=== PATIENT | male | born 1955 | race Caucasian/White ===

== ENCOUNTER 2016-09-23 07:21 | Emergency (ER) | payer OTHER ==
[~2016-09-23] VITALS: Ht 190.5 cm; Wt 95.0 kg
[~2016-09-23 07:21] MED LIST: CARD8TAB2 PO; LOSA50TA PO; LOVA40TA PO; SAW450CA2 PO
[2016-09-23 07:23] VITALS: BP 149/94; PULSE 88; RESP 16; TEMP 97.7; O2SAT 96
--- NOTE | 2016-09-23 07:31 | PD ---
HPI . left index and middle finger laceration last night Chief Complaint: Laceration/Skin Injury Time Seen by Provider: 07:31 Travel History International Travel<30 days: No Contact w/Intl Traveler<30days: No Traveled to known affect area: No History of Present Illness HPI 61-year-old male with history of hypertension and hyperlipidemia here with left index and middle finger laceration that occurred last night around 6 PM. Patient decided to apply Steri-Strips himself as he did not want to wait in the emergency room. This morning he is here wanting suture repair to his left index and middle finger. He has approximately a 1 cm laceration on the left index finger and 1.5 cm laceration on the left middle finger. They're both at the distal tip of the finger, do not affect the nailbed or nail and are on the palmar surface of the hand. He is right-hand dominant. He is up-to-date on his tetanus vaccination. PFSH Past Medical History High Cholesterol: Yes Hypertension: Yes ?: Not Social History Tobacco Use: No Allergies-Medications (Allergen,Severity, Reaction): Coded Allergies: No Known Allergies (Verified , 09/23/16) Reported Meds & Prescriptions Reported Meds & Active Scripts Active Cardura (Doxazosin Mesylate) 8 Mg Tab 8 Mg PO HS Reported Multiple Vitamin 1 Tab 1 Tab PO DAILY Losartan (Losartan Potassium) 50 Mg Tab 50 Mg PO DAILY Lovastatin 40 Mg Tab 40 Mg PO DAILY Saw Hartshorne (Serenoa Repens) 450 Mg Cap 450 Mg PO DAILY Review of Systems General / Constitutional: No: Fever Eyes: No: Visual changes HENT: No: Headaches Cardiovascular: No: Chest Pain or Discomfort Respiratory: No: Shortness of Breath Gastrointestinal: No: Abdominal Pain Genitourinary: No: Dysuria Musculoskeletal: No: Pain Skin: Positive Other (finger lacerations), No Rash Neurologic: No: Weakness Psychiatric: No: Depression Endocrine: No: Polydipsia Hematologic/Lymphatic: No: Easy Bruising Physical Exam Narrative GENERAL: AAO x 3, no acute distress, Well-nourished, well-developed patient. SKIN: Warm and dry. No visible rashes or bruising. Small 1 cm laceration to the distal tip of the left index finger on the palmar surface, 1.5 cm laceration to the left middle finger distal tip palmar surface (only affects fat pad). There is no tendon, vessel or bone injury. HEAD: Normocephalic and atraumatic. EYES: No scleral icterus. No injection or drainage. ENT: No nasal drainage noted. Airway patent. NECK: Supple, trachea midline. No JVD. CARDIOVASCULAR: Regular rate and rhythm without murmurs, gallops, or rubs. RESPIRATORY: Breath sounds equal bilaterally. No accessory muscle use. No rhonchi or rales. GASTROINTESTINAL: Abdomen soft, non-tender, nondistended. EXTREMITIES: No cyanosis or edema. Range of motion of all digits are normal. Cap refill is normal.Sensation is normal and intact. BACK: Nontender without obvious deformity. No CVA tenderness. PSYCH: AAO x 3, normal affect. Data Data Last Documented VS Vital Signs Date Time Temp Pulse Resp B/P Pulse Ox O2 Delivery O2 Flow Rate FiO2 09/23/16 07:23 97.7 88 16 149/94 96 Room Air Orders Lidocaine 1% Inj (50 Ml) (Xylocaine 1% I (09/23/16 07:45) MDM Medical Decision Making Medical Screen Exam Complete: Yes Emergency Medical Condition: Yes Medical Record Reviewed: Yes Differential Diagnosis finger laceration, less likely cellulitis, less likely fracture Narrative Course 61-year-old male with history of hypertension and hyperlipidemia here with left index and middle finger laceration that occurred last night around 6 PM. Patient decided to apply Steri-Strips himself as he did not want to wait in the emergency room. This morning he is here wanting suture repair to his left index and middle finger. He has approximately a 1 cm laceration on the left index finger and 1.5 cm laceration on the left middle finger. They're both at the distal tip of the finger, do not affect the nailbed or nail and are on the palmar surface of the hand. He is right-hand dominant. He is up-to-date on his tetanus vaccination. Patient consented to laceration repair. The index and middle finger were repaired on the left hand. Patient tolerated without incident. Sterile dressings were applied. 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 he was advised of possible scarring and slow healing if he overuses this hand. Advised dressing changes and cleaning. Return in 7-10 days for removal. Patient verbalized understanding of instructions, questions were answered, and thanked me for their care. I advised them if their condition worsens, please return to the nearest emergency room for further care. Procedures Procedure Narrative LACERATION LOCATION: Left index and middle finger LENGTH: 1 cm and 1.5 cm respectively NUMBER OF STITCHES/BOLIVAR: 4/6 REPAIR: The area of the laceration was prepped with Betadine and sterilely draped. The laceration was infiltrated with 1% lidocaine. The wound was copiously irrigated and explored without evidence of foreign body, tendon injury or neurovascular injury. The wound was closed using 4-0 Ethilon. This was a single layer repair. A sterile dressing was applied. The patient was advised to keep the dressing clean and dry. Patient tolerated the procedure well. advised removal in 7-10 days dressing changes discussed Diagnosis Primary Impression: Laceration of finger of left hand Qualified Code: S61.219A - Laceration of finger of left hand, initial encounter Patient Instructions: Finger Laceration (ED), General Instructions Additional Instructions: Keep area clean and dry. Use gauze as we discussed and change 1-2 times a day. try to protect the finger from injuries at work. Watch for signs of infection: fever, redness, swelling, warmth, pus or drainage , red streaks around the cut, and increased pain from the area. If you received a tetanus shot, you may experience tenderness at the injection site. This is normal. Ary for worsening signs of infection which include increased redness, increased warmth, purulent drainage, increased swelling or streaking. If any of these develop, please return to the nearest emergency department. The sutures will need to be removed in 7-10 days, please return to the emergency department for removal. (4 sutures in index finger and 6 in middle finger: left hand) Med/Other Pt SpecificInfo: No Change to Meds Disposition: 01 DISCHARGE HOME Condition: Stable Nelsy Lopez Sep 23, 2016 07:31
[2016-09-23] MEDS ORDERED: MULTTAB67 PO (07:39)
[2016-09-23] MEDS ORDERED: LIDOCAINE HCL 1% 50 ML VIAL INFIL ONE (07:45)
== END 2016-09-23 08:30 | disposition home or self-care (01) ==
LOC: NEPK 07:21
DX: S61.211A Laceration without foreign body of left index finger without damage to nail, initial encounter (principal); S61.213A Laceration without foreign body of left middle finger without damage to nail, initial encounter; E78.00 Pure hypercholesterolemia, unspecified; I10 Essential (primary) hypertension; W45.8XXA Other foreign body or object entering through skin, initial encounter
CPT/HCPCS: 12001